=== PATIENT | female | born 2000 | race Caucasian/White ===

== ENCOUNTER 2024-11-08 15:19 | Outpatient (CLI) | payer BC, SELFPAY | END 2024-11-08 15:20 | disposition home or self-care (01) | LOC: US 15:24 | PROVIDERS: PCP Registered Nurse; Visit Provider Registered Nurse | DX: R10.2 Pelvic and perineal pain (principal) | CPT/HCPCS: 76830; 76856; 93976; T1013 ==

== ENCOUNTER 2025-06-21 07:35 | Outpatient (CLI) | payer BC, SELFPAY | END 2025-06-21 07:36 | disposition home or self-care (01) | LOC: NFLDREF 06-24 09:31 | PROVIDERS: PCP Registered Nurse; Referring Provider Registered Nurse; Visit Provider Family Medicine | DX: Z13.1 Encounter for screening for diabetes mellitus (principal); Z13.6 Encounter for screening for cardiovascular disorders | CPT/HCPCS: 80061; 82947 ==

== ENCOUNTER 2025-06-30 07:58 | Outpatient (CLI) | payer BC, SELFPAY | END 2025-06-30 07:59 | disposition home or self-care (01) | LOC: NFLDREF 08:00 | PROVIDERS: PCP Family Medicine; Visit Provider Family Medicine | DX: N92.6 Irregular menstruation, unspecified (principal) | CPT/HCPCS: 84443 ==